=== PATIENT | male | born 1985 | race Caucasian/White ===

== ENCOUNTER 2018-01-27 07:19 | Outpatient (CLI) | payer MEDICARE ==
--- NOTE | 2018-01-27 10:17 | ULT ---
THYROID ULTRASOUND: History: Hyperparathyroidism and thyroid mass. Comparison: None. FINDINGS: Right thyroid lobe measures 1.8 x 3.7 x 1.6 cm. Left thyroid lobe measures 1.4 x 3.4 x 1.7 cm. Thyroi d isthmus measures 0.28 cm. IMPRESSION: No focal thyroid lesion is demonstrated. POS: ROSI
--- NOTE | 2018-01-27 13:29 | NM ---
PARATHYROID NUCLEAR MEDICINE SCAN: Date: 01/27/18 INDICATION: History of hyperparathyroidism. RADIOPHARMACEUTICAL: 26 mCi technetium-99m sestamibi IV. FINDINGS: There is symmetric activity seen within the thyroid gland on the immediate images that demonstrate so me washout on the 1 hour and 2 hour delayed. No focal abnormal persistent collection of sestamibi is seen on the delayed phase images utilizing SPECT CT. There is some misregistration of activity due to patient motion. Background activity is seen within the salivary glands. IMPRESSION: No abnormal scintigraphic evidence to suggest parathyroid adenoma. POS: MARY
== END 2018-01-27 07:20 | disposition home or self-care (01) ==
LOC: NM 07:19
PROVIDERS: ATTEND Internal Medicine
DX: E21.3 Hyperparathyroidism, unspecified (principal)
CPT/HCPCS: 76536; 78072; A9500